=== PATIENT | female | born 1970 | race Caucasian/White ===

== ENCOUNTER 2022-01-23 12:00 | Emergency (ER) | payer OTHER ==
[~2022-01-23] VITALS: Ht 160 cm; Wt 98.4 kg
--- NOTE | 2022-01-23 12:20 | NUR ---
Dr Del Rosario at the bedside fpr [facility].
[2022-01-23] MEDS ORDERED: HYDROCODONE/APAP 5-325MG TABLET ONE (12:42)
[2022-01-23] MEDS ORDERED: HYDROCODONE/APAP 5-325MG TABLET PO ONE (12:45)
[2022-01-23] MEDS ORDERED: CYCL5TAB PO (13:49)
[2022-01-23 14:02] VITALS: BP 131/68
== END 2022-01-23 14:07 | disposition home or self-care (01) ==
LOC: ER 12:00
DX: M54.50 Low back pain, unspecified (principal); M25.551 Pain in right hip; G89.29 Other chronic pain
CPT/HCPCS: 72170; 73502; A4663